=== PATIENT | male | born 2005 | race African-American/Black ===

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

== ENCOUNTER 2024-12-28 18:50 | Emergency (ER) | payer OTHER, SELFPAY ==
[2024-12-28] MEDS ORDERED: Famotidine 20 MG TAB ONE (19:20)
[2024-12-28] MEDS ORDERED: Acetaminophen 500 MG TAB ONE (19:20)
== END 2024-12-28 19:42 | disposition home or self-care (01) ==
LOC: ERS 18:50
DX: K02.9 Dental caries, unspecified (principal); R03.0 Elevated blood-pressure reading, without diagnosis of hypertension
CPT/HCPCS: 99282; Q0162